=== PATIENT | female | born 1960 | race Caucasian/White ===

== ENCOUNTER 2021-05-25 18:22 | Emergency (ER) | payer OTHER ==
[2021-05-25] MEDS ORDERED: AUGMENTIN 875-1 EACH PO (21:04)
== END 2021-05-25 21:10 | disposition home or self-care (01) ==
LOC: ER1 18:22
DX: S71.152A Open bite, left thigh, initial encounter (principal); Z88.2 Allergy status to sulfonamides; Z88.5 Allergy status to narcotic agent; W54.0XXA Bitten by dog, initial encounter; Y92.89 Other specified places as the place of occurrence of the external cause; Y99.0 Civilian activity done for income or pay
CPT/HCPCS: 90471; 90715; 99283

== ENCOUNTER 2021-05-28 13:18 | Emergency (ER) | payer MEDICARE, OTHER ==
[~2021-05-28 13:18] MED LIST: AUGMENTIN 875-1 EACH PO
[2021-05-28 15:25] LABS: HEMOGLOBIN 13.6 gm/dl (12.3-15.3); RED BLOOD COUNT 4.58 M/UL (4.00-5.10); WHITE BLOOD COUNT 11.1 K/UL (4.5-11.0)
[2021-05-28 15:59] LABS: BUN/CREATININE RATIO 14 (0-10)
== END 2021-05-28 18:06 | disposition home or self-care (01) ==
LOC: ER1 13:18
PROVIDERS: Nurse Practitioner
DX: S70.12XA Contusion of left thigh, initial encounter (principal); R51.9 Headache, unspecified; Z20.822 Contact with and (suspected) exposure to COVID-19; R10.813 Right lower quadrant abdominal tenderness; Z88.2 Allergy status to sulfonamides; Z88.5 Allergy status to narcotic agent; W54.0XXA Bitten by dog, initial encounter
CPT/HCPCS: 80053; 82550; 82553; 83874; 84484; 85025; 93005; 96374; 99284; J2405; U0002